=== PATIENT | male | born 2000 | race American Indian/Alaskan Native ===

== ENCOUNTER 2024-02-27 09:55 | Emergency (ER) | payer OTHER, SELFPAY ==
--- NOTE | ~2024-02-27 | XR_ITS ---
EXAMINATION: XR CHEST CLINICAL INFORMATION: Cough, shortness of breath. COMPARISON: None available. TECHNIQUE: Frontal view of the chest was obtained. FINDINGS: No significant abnormality is noted involving the heart, lungs, mediastinum, bony thorax or soft tissues. XR/XR chest 1V IMPRESSION: Unremarkable examination.
[2024-02-27 10:27] VITALS: BP 133/66; PULSE 94; RESP 18; TEMP 37; O2SAT 98; BMI 29.5
--- NOTE | 2024-02-27 10:40 | ED_ITS ---
HPI - General Adult General Chief complaint: Upper Respiratory Symptoms Stated complaint: bronchitis Time Seen by Provider: 02/27/24 10:34 Source: patient and other (Significant other) Mode of arrival: ambulatory Limitations: no limitations History of Present Illness ED Provider: Karely SEGOVIA HPI narrative: This is a 23-year-old male current regular user of marijuana presenting to the e mergency department with complaints of cough, fatigue, malaise, body aches ongoing for the past 4-5 days. Patient reports that he is coughing up yellow/white thick stuff. And when he coughs he gets a burning sensation in his chest. He also reports some shortness of breath. He reports something similar to this happened about a month ago and he thinks it was bronchitis. He denies chest pain, nausea, vomiting, abdominal pain, headache, vision changes, dizziness, weakness, recent antibiotic use, recent travel, changes in urinary or bowel habits, shortness of breath. Related Data Previous Rx's ?Medication ?Instructions ?Recorded albuterol sulfate 90 mcg/actuation 2 inh inhalation Q4-6H PRN 02/27/24 breath activated powder inhaler shortness of breath or wheezing #1 ea doxycycline hyclate 100 mg capsule 100 mg PO BID 10 days #20 caps 02/27/24 prednisone 20 mg tablet 40 mg (2 x 20 mg) PO DAILY 5 days 02/27/24 #10 tabs Allergies Allergy/AdvReac Type Severity Reaction Status Date / Time Seasonal Allergies Allergy Cough Verified 02/27/24 10:31 Review of Systems Review of Systems: Yes all other systems are reviewed and are negative PMFSH Past Medical History Attestation statement: The following information was validated with the patient. Source: old records reviewed and nursing notes reviewed Social History Social History Advance Directives: No Advance Directives Information Provided: No Physical Exam ED Vital Signs: Vital Signs - 24 hr 02/27/24 10:27 Temperature 98.6 F Pulse Rate 94 Respiratory Rate 18 Blood Pressure 133/66 Pulse Oximetry 98 BMI result Body Mass Index 29.5 vss Appearance: Alert.? Oriented X3.? No acute distress.? Head: Normocephalic, atraumatic, no step-offs or deformities Eyes: Pupils equal, round and reactive to light.? Neck: Normal inspection.? Neck supple.? CVS: Normal heart rate and rhythm.? Pulses normal.? Respiratory: No respiratory distress.? Breath sounds with bilateral lower lobe crackles and expiratory wheezing..? Abdomen: Soft and nontender.? Skin: Skin warm and dry.? Normal skin color.? Normal skin turgor.? Extremities: No lower extremity edema.? No calf ttp. 5/5 strength to bilateral upper and lower extremities Back: No midline tenderness, no C-spine tenderness, full range of motion, no CVA tenderness bilaterally Neuro: Oriented X 3.? No motor deficit.? No sensory deficit. CN 2-12 intact Course Reevaluation(s) Reevaluation #1: X-ray unremarkable. Viral testing pending however would not change disposition. Will call me if results are positive. Vital signs stable at time of discharge saturating well on room air speaking in full sentences well appearing. Educated patient on diagnosis and treatment plan, answered all question, patient verbalizes understanding. At this time patient will be discharged home, advised to return with new or worsening symptoms. Educated on worrisome signs and symptoms and when to return. At this time I feel comfortable discharge home. Medical Decision Making Medical Decision Making [facility] Narrative: 1043 23-year-old male presents with upper respiratory symptoms for the past 4-5 days. Reports he had a similar episode about a month ago. On exam Breath sounds with bilateral lower lobe crackles and expiratory wheezing..? History and physical exam concerning for bronchitis versus pneumonia. No signs of acute respiratory distress, unlikely PE (perc negative), ACS, dissection. Other differentials include viral illness. Unlikely metabolic derangements Plan x-ray, viral testing. Differential Diagnosis Differential Diagnoses: The differential diagnosis associated with the presentation includes History and physical exam concerning for bronchitis versus pneumonia. No signs of acute respiratory distress, unlikely PE, ACS, dissection. Other differentials include viral illness. Unlikely metabolic derangements Admission/Observation Consideration of admission/observation: Escalation of care including admission/observation considered Unlikely Independent Interpretation I performed an independent interpretation of an: Plain X-Ray (XR/XR chest 1V IMPRESSION: Unremarkable examination.) Radiology Impression Discussion of test interpretation with radiology: I have reviewed the radiologist's reading. Independent Historian Clinical information obtained from an independent historian. History obtained from or confirmed by: Other (significant other ) Prescription Management I considered prescription management with: Antibiotic and Other (steroids ) Chronic Conditions Patient?s care impacted by: Other (obesity ) Critical Care Time Critical Care Time Critical Care Time: No Discharge Plan Discharge Clinical Impression: Bronchitis Patient Disposition: Home, Self-Care Instructions: Acute Bronchitis (ED), How Your Lungs Work (ED) Additional Instructions: Take your medications as prescribed. If you were prescribed antibiotics today, it is important that you take your medication to their entirety, do not skip any doses, do not finish them early. Follow-up with your primary care provider this week. Return to the emergency department with new or worsening symptoms. Such as fevers, chills, chest pain, shortness of breath, nausea, vomiting, dizziness, headache, vision changes, lethargy In case of emergency call 911 XR/XR chest 1V IMPRESSION: Unremarkable examination. Prescriptions: New doxycycline hyclate 100 mg capsule 100 mg PO BID 10 Days Qty: 20 0RF prednisone 20 mg tablet 40 mg PO DAILY 5 Days Qty: 10 0RF albuterol sulfate 90 mcg/actuation aerosol powdr breath activated 2 inh inhalation Q4-6H PRN (Reason: shortness of breath or wheezing) Qty: 1 0RF Referrals: Physician,Unknown J [Primary Care Provider] - 2 days Print Language: Yoruba
[2024-02-27 11:22] VITALS: BP 133/66; PULSE 94; RESP 18; TEMP 37; O2SAT 98
[2024-02-27 11:25] LABS: Influenza A PCR NEGATIVE (Negative); Influenza B PCR NEGATIVE (Negative); Resp Syncy Virus RNA Qual PCR NEGATIVE (Negative); SARS COV2 PCR INHOUSE NEGATIVE (Negative)
== END 2024-02-27 11:23 | disposition home or self-care (01) ==
PROVIDERS: Emergency Provider Emergency Medicine
DX: J40 Bronchitis, not specified as acute or chronic (principal); R05.9 Cough, unspecified; R06.02 Shortness of breath; Z03.818 Encounter for observation for suspected exposure to other biological agents ruled out
CPT/HCPCS: 0241U; 71045; 99282; 99283